=== PATIENT | male | born 1940 | race Caucasian/White ===

== ENCOUNTER → 2017-04-02 | Outpatient (CLI) | payer OTHER ==
--- NOTE | 2017-04-02 10:02 | US ---
EXAMINATION TYPE: US liver DATE OF EXAM: 04/02/2017 COMPARISON: NONE CLINICAL HISTORY: R79.89 ABN FINDINGS OF BLOOD CHEMISTRY. EXAM MEASUREMENTS: Liver Length: 16.3 cm Gallbladder Wall: 0.3 cm CBD: 0.6 cm Right Kidney: 10.5 x 5.2 x 4.6 cm Pancreas: hyperechoic; SMA is prominent on slender patient Liver: multiple heterogeneous masses in right and left lobes, and possibly in caudate lobe Gallbladder: abnormally thickened wall Evidence for sonographic Morrison's sign: c/o epigastric pain with probe pressure CBD: wnl Right Kidney: wnl Upper Aorta: abnormally dilated with hypoechoic area at right aorta periphery and color flow is paten t within internal lumen. IMPRESSION: 1. Multiple masses within the liver suspected recommend CT scan. 2. Gallbladder wall is thickened measuring 3 mm with no evidence of gallstones. 3. Dilation of the proximal abdominal aorta suspected eccentric atherosclerotic changes also could be assessed with CT scan. A Red message has been communicated to Bebeto Dawson DO via the [employer] Critical Result system on 04/02/2017 9:56 AM, Message ID [id number].
== END | disposition home or self-care (01) ==
LOC: RADUSWWP 09:08
PROVIDERS: ATTEND Family Medicine
DX: R16.0 Hepatomegaly, not elsewhere classified (principal); R07.89 Other chest pain
CPT/HCPCS: 76705

== ENCOUNTER → 2017-04-17 | Outpatient (CLI) | payer OTHER ==
[2017-04-17 14:57] LABS: Blood Urea Nitrogen 13 mg/dL (9-20); Non-African American GFR(MDRD) >60 (>60 ml/min/1.73 sqM)
--- NOTE | 2017-04-17 16:58 | CT ---
EXAMINATION TYPE: CT abdomen pelvis wo/w con DATE OF EXAM: 04/17/2017 COMPARISON: None at this location INDICATION: Carcinoid tumors of the liver. Patient complains of changes in bowel habits. DLP: 2281.00 mGycm, Automated exposure control for dose reduction was used. CONTRAST: 100 mL of Omnipaque 300. Study performed with Oral Contrast TECHNIQUE: Axial images were obtained from above the diaphragm to the pubic rami in the axial plane a t 5 mm thick sections. Reconstructed images are reviewed on the computer in the coronal plane. FINDINGS: Limited CT sections are obtained the lung bases. The lung bases are clear. CT ABDOMEN: Liver: Large hypodensities are scattered throughout the liver. 2 adjacent or one large right lobe mid liver lesion measures 8.0 x 13.2 cm. Spleen: Calcified granuloma is within the spleen. Pancreas: Some slightly prominent tail of pancreas hypodensity is present. Underlying mass is not exc luded. This is a noncontrast study causing some limitation on the evaluation. Follow-up however is re commended. Adrenal glands: Normal Gallbladder: Normal Kidneys: No masses are evident. No hydronephrosis is present. Extrarenal pelves are present. No cysts are present. Aorta: Vascular calcification is within the aorta. Inferior vena cava: Normal CT PELVIS: Loops of bowel within the abdomen and pelvis are normal. There are loops of bowel which are incom pletely distended or lack oral contrast limiting their evaluation. Patient's primary tumor is not kaylynn ntified Appendix: Not identified. No suspicious tubular structures around the right lower quadrant. Urinary bladder: This appears markedly distended. Genitourinary structures: Prostate contains calcification. Osseous structures: No suspicious lytic or sclerotic lesions. Scoliosis and degenerative changes are through the lumbar spine. IMPRESSIONS: 1. Multiple large hypodensities within the liver can be compatible with the patient's reported carci noid tumor. 2. Distended urinary bladder. Correlate for urinary retention.
== END | disposition home or self-care (01) ==
LOC: RADCTMAIN 14:20
PROVIDERS: ATTEND Family Medicine
DX: C7B.02 Secondary carcinoid tumors of liver (principal); N32.89 Other specified disorders of bladder; R93.8 Abnormal findings on diagnostic imaging of other specified body structures
CPT/HCPCS: 82565; 84520; 74178; 36415; Q9967

== ENCOUNTER 2017-05-11 09:39 | Day surgery (SDC) | payer MEDICARE, BC ==
[~2017-05-11 09:39] MED LIST: ALPRAZolam 0.5 MG TAB PO ONE; HYDROmorphone 1 MG/ML 1 ML SYRINGE IVP PRN
[2017-05-11 10:11] VITALS: TEMP 98.3
[2017-05-11] MEDS ORDERED: ALPRAZolam 0.25 MG TAB PO STA (10:16)
[2017-05-11 10:23] LABS: Basophils # (A) 0.1 k/uL (0-0.2); Basophils % (A) 2 %; CH 32.3; CHCM 33.7; Eosinophils % (A) 0 %; HCT 45.5 % (39.0-53.0); HDW 2.57; HGB 15.1 gm/dL (13.0-17.5); Luc # (Auto) 0.13; Luc % (Auto) 2; Lymphocytes # (A) 0.7 k/uL (1.0-4.8); Lymphocytes % (A) 10 %; MCH 31.9 pg (25.0-35.0); MCHC 33.1 g/dL (31.0-37.0); MCV 96.3 fL (80.0-100.0); Mean Platelet Volume 7.8; Monocytes # (A) 0.4 k/uL (0-1.0); Monocytes % (A) 6 %; Neutrophils # (A) 5.6 k/uL (1.3-7.7); Neutrophils % (A) 80 %; RBC 4.73 m/uL (4.30-5.90); RDW 13.5 % (11.5-15.5)
[2017-05-11 10:31] LABS: ALT 47 U/L (21-72); AST 43 U/L (17-59); Alkaline Phosphatase 423 U/L (38-126); Anion Gap 9 mmol/L; Blood Urea Nitrogen 16 mg/dL (9-20); Calcium 9.8 mg/dL (8.4-10.2); Carbon Dioxide 29 mmol/L (22-30); Chloride 100 mmol/L (98-107); Glucose 208 mg/dL (74-99); Non-African American GFR(MDRD) >60 (>60 ml/min/1.73 sqM); Potassium 4.3 mmol/L (3.5-5.1); Sodium 138 mmol/L (137-145); Total Protein 7.1 g/dL (6.3-8.2)
[2017-05-11 10:32] LABS: INR 1.1 (<1.2); Prothrombin Time 11.1 sec (9.0-12.0)
[2017-05-11 10:40] LABS: Glucose,Whole Blood 159 mg/dL (75-99)
[2017-05-11 11:52] LABS: Glucose,Whole Blood 126 mg/dL (75-99)
--- NOTE | 2017-05-11 12:00 | CT ---
EXAMINATION TYPE: CT guided aspiration DATE OF EXAM: 05/11/2017 COMPARISON: NONE HISTORY: Liver masses CT DLP: 1912mGycm PROCEDURE: The risks, applications, benefits and alternatives, were discussed with the patient and questions wer e answered. Informed consent was obtained. The patient was placed supine on the fluoroscopic table, prepped and draped in the usual sterile fashion. A 25-gauge system was utilized with direct passage of the needle into the left lobe liver lesion und er CT guidance. Samples were obtained with fine needle aspiration. Pathology confirmed adequate crystal ple. The patient was stable throughout procedure and remained stable upon discharge from radiology. All e lements of maximal barrier and sterile technique were utilized. IMPRESSION: 1. Successful left lobe liver mass fine needle aspiration under CT guidance.
[2017-05-11 14:49] VITALS: BP 128/82; PULSE 68; RESP 20
== END 2017-05-11 15:20 | disposition home or self-care (01) ==
LOC: RADPROMAIN 09:39
PROVIDERS: ATTEND Internal Medicine Gastroenterology
DX: C78.7 Secondary malignant neoplasm of liver and intrahepatic bile duct (principal)
CPT/HCPCS: 88305; 88173; 80053; 82378; 85025; 85610; 88342; 88341; 82105; 86301; 96374; 77012; 10022; J1170; 81275; 81276

== ENCOUNTER → 2017-05-19 | Outpatient (CLI) | payer MEDICARE, BC ==
--- NOTE | 2017-05-20 09:41 | PE ---
Nuclear medicine PET/CT HISTORY: Colon carcinoma Patient received 12.9 mCi F-18 FDG intravenously and delayed scanning performed from the skull base t o the mid thighs. Localization and attenuation correction CT scan was performed. Exam is correlated t o prior CT abdomen pelvis 04/17/2017 Neck and chest: There is no suspicious hypermetabolic uptake. No evident adenopathy. Ascending aorta is dilated at 4 cm. There are coronary artery calcifications. Abdomen pelvis: Large confluent areas of abnormal low attenuation are present within the liver with c orresponding hypermetabolic uptake. There are some associated dilated intrahepatic biliary ducts towa rds the dome of the diaphragm. Calcifications are again noted within the pancreas. No evident retrope ritoneal adenopathy. Cystic pancreatic tail mass is present. The urinary bladder is markedly distended. Calcifications present within an enlarged prostate. 2 foci of hypermetabolic uptake within the left hemipelvis posteriorly may represent abnormal nodes althoug h these are not clearly enlarged by CT scan criteria. Abnormal increased attenuation present within t he fat surrounding the rectum, question some abnormal thickening of the rectal mucosa, correlate for rectal mass, there is associated abnormal hypermetabolic uptake present. Osseous structures show degenerative disc changes within the visualized spine, there is a scoliosis. IMPRESSION: Findings suggest metastatic disease within the liver due to possible rectal carcinoma. Pr obable abnormal nodes within the pelvis as described. Urinary retention. Abnormal pancreas as describ ed. Additional findings above.
== END ==
LOC: RADPETMAIN 09:17
PROVIDERS: ATTEND Internal Medicine Hematology & Oncology
DX: C18.9 Malignant neoplasm of colon, unspecified (principal)
CPT/HCPCS: 78815; A9552

== ENCOUNTER 2017-07-19 09:22 | Emergency (ER) | payer MEDICARE, BC ==
[2017-07-19 10:05] VITALS: BP 141/84; PULSE 76; RESP 16; TEMP 97.7
--- NOTE | 2017-07-19 10:16 | ED ---
General Adult HPI - General Chief complaint: Recheck/Abnormal Lab/Rx Stated complaint: Catheder leak Time Seen by Provider: 07/19/17 10:08 Source: patient, RN notes reviewed Mode of arrival: ambulatory Limitations: no limitations - History of Present Illness Initial comments: Patient 76-year-old male who presents emergency room today with chief complaint of a León catheter bag that is leaking. Patient states that he was advised by his urologist to come here to the emergency room to have only a new León catheter bag placed. Patient states seems to be leaking from the bottom of the bag causing this. Patient denies any complaints or symptoms. States he is scheduled see his urologist next week to have the León catheter itself removed. Patient denies any other complaints or symptoms. Patient denies any recent fever, chills, shortness of breath, chest pain, back pain, abdominal pain , nausea or vomiting, numbness or tingling, dysuria or hematuria, constipation or diarrhea, headaches or visual changes, or any other complaints. - Related Data Home Medications Medication Instructions Recorded Confirmed Non-Formulary Drug [Non Formulary 1 each PO TID-W/MEALS 05/08/17 05/11/17 Drug] Allergies Allergy/AdvReac Type Severity Reaction Status Date / Time starch AdvReac Swelling Verified 05/11/17 10:15 Review of Systems ROS Statement: Those systems with pertinent positive or pertinent negative responses have been documented in the HPI. ROS Other: All systems not noted in ROS Statement are negative. Past Medical History Past Medical History: Diabetes Mellitus, Liver Disease Additional Past Medical History / Comment(s): bladder problems History of Any Multi-Drug Resistant Organisms: None Reported Past Surgical History: Hernia Repair Additional Past Surgical History / Comment(s): bone replaced in finger, umbilical hernia surgery, multiple site fatty tumors removed. Past Anesthesia/Blood Transfusion Reactions: No Reported Reaction Past Psychological History: Anxiety, Bipolar, Depression Smoking Status: Former smoker Past Alcohol Use History: Rare Past Drug Use History: None Reported - Past Family History Mother Family Medical History: Congestive Heart Failure (CHF) General Exam - General Exam Comments Initial Comments: General: The patient is awake and alert, in no distress, and does not appear acutely ill. Eye: Pupils are equal, round and reactive to light, extra-ocular movements are intact. No nystagmus. There is normal conjunctiva bilaterally. No signs of icterus. Ears, nose, mouth and throat: There are moist mucous membranes and no oral lesions. Neck: The neck is supple, there is no tenderness or JVD. Musculoskeletal: Normal ROM, no tenderness. Strength 5/5. Sensation intact. Pulses equal bilaterally 2+. Neurological: A&O x 3. CN II-XII intact, There are no obvious motor or sensory deficits. Coordination appears grossly intact. Speech is normal. Skin: Skin is warm and dry and no rashes or lesions are noted. Psychiatric: Cooperative, appropriate mood & affect, normal judgment. Limitations: no limitations Course Vital Signs 07/19/17 10:00 Temperature 97.7 F Pulse Rate 76 Respiratory 16 Rate Blood Pressure 141/84 O2 Sat by Pulse 98 Oximetry Medical Decision Making - Medical Decision Making Patient presents to the emergency room to have León catheter bag placed. States the León catheter itself was not be removed. He states he was instructed by his urologist Dr. Diaz. Disposition Clinical Impression: León catheter problem Disposition: HOME SELF-CARE Condition: Good Instructions: León Catheter Placement and Care (ED) Additional Instructions: Please follow-up with urologist next week. Please return to emergency room if the symptoms increase or worsen or for any other concerns. Referrals: Bebeto Dawson DO [Primary Care Provider] - 1-2 days Time of Disposition: 10:16
== END 2017-07-19 10:24 | disposition home or self-care (01) ==
LOC: EC 09:22
DX: T83.031A Leakage of indwelling urethral catheter, initial encounter (principal); Z87.891 Personal history of nicotine dependence; Z79.899 Other long term (current) drug therapy; Z91.018 Allergy to other foods
CPT/HCPCS: 99283

== ENCOUNTER 2017-09-21 04:15 | Inpatient (IN) | payer MEDICARE, BC ==
--- NOTE | 2017-09-21 04:44 | ED ---
General Adult HPI - General Chief complaint: Fall Stated complaint: weakness Time Seen by Provider: 09/21/17 04:18 Source: patient, EMS, RN notes reviewed, old records reviewed Mode of arrival: EMS Limitations: no limitations - History of Present Illness Initial comments: 77-year-old male presenting status post fall. Patient has stage IV colon cancer. Patient states he felt weak causing him to fall. He did hit his head. No loss of consciousness. Patient is not on any blood thinners. He has no pain complaints the time my evaluation. No chest pain or shortness of breath. No abdominal pain. No nausea or vomiting. Patient denies any focal weakness. Denies any extremity pain. - Related Data Home Medications Medication Instructions Recorded Confirmed Non-Formulary Drug [Non Formulary 1 each PO TID-W/MEALS 05/08/17 05/11/17 Drug] Previous Rx's Medication Instructions Recorded Ciprofloxacin HCl [Cipro] 500 mg PO Q12HR #14 tablet 08/04/17 Allergies Allergy/AdvReac Type Severity Reaction Status Date / Time starch AdvReac Unknown Verified 09/21/17 04:24 Review of Systems ROS Statement: Those systems with pertinent positive or pertinent negative responses have been documented in the HPI. ROS Other: All systems not noted in ROS Statement are negative. Past Medical History Past Medical History: Diabetes Mellitus, Liver Disease Additional Past Medical History / Comment(s): bladder problems , rectal cancer with mets to the liver dx 05/13 History of Any Multi-Drug Resistant Organisms: None Reported Past Surgical History: Hernia Repair Additional Past Surgical History / Comment(s): bone replaced in finger, umbilical hernia surgery, multiple site fatty tumors removed. Past Anesthesia/Blood Transfusion Reactions: No Reported Reaction Past Psychological History: Anxiety, Bipolar, Depression, PTSD Smoking Status: Former smoker Past Alcohol Use History: None Reported Past Drug Use History: None Reported - Past Family History Mother Family Medical History: Congestive Heart Failure (CHF) General Exam Limitations: no limitations General appearance: alert, in no apparent distress Head exam: Present: normocephalic, other (Hematoma and abrasion to the right frontal scalp) Eye exam: Present: normal appearance, PERRL. Absent: EOMI ENT exam: Present: normal exam Neck exam: Present: normal inspection. Absent: tenderness, meningismus Respiratory exam: Present: normal lung sounds bilaterally. Absent: respiratory distress Cardiovascular Exam: Present: regular rate, normal rhythm GI/Abdominal exam: Present: soft. Absent: distended, tenderness Extremities exam: Present: normal inspection, full ROM, normal capillary refill. Absent: tenderness, pedal edema Neurological exam: Present: alert, oriented X3, CN II-XII intact. Absent: motor sensory deficit Psychiatric exam: Present: normal affect, normal mood Skin exam: Present: warm, dry, intact. Absent: cyanosis, diaphoretic Course Vital Signs 09/21/17 09/21/17 09/21/17 04:16 05:50 06:29 Temperature 97.7 F Pulse Rate 98 77 80 Respiratory 16 16 16 Rate Blood Pressure 127/79 119/77 126/68 O2 Sat by Pulse 97 96 96 Oximetry EKG Findings - EKG Comments: EKG Findings:: EKG shows sinus rhythm with occasional PVC left axis deviation, pulmonary disease pattern, prolonged QT, ventricular rate 86, AR 174, QRS duration 108, QTC 524. Medical Decision Making - Medical Decision Making 77-year-old male with history of stage IV colon cancer presents with fatigue and fall. Patient did hit his head. Head CT is negative for acute cranial hemorrhage, CT cervical spine negative for fracture or subluxation, x-ray of the pelvis is negative for any acute bony of her memory, chest x-ray negative for focal pneumonia or acute process. Laboratory studies reveal white blood cell count 13.0 which is mildly elevated, hemoglobin 11.4 which represents a 4 g reduction from several months ago. Sodium is low at 1:30, creatinine normal lactic acid 3.1 consistent with dehydration. Patient has significant liver enzymes consistent with metastatic disease, total bili is elevated 2.9, AST and ALT both mildly elevated, alkaline phosphatase elevated at 1334. Urinalysis is pending. Patient will be admitted for rehydration and symptomatic management. - Lab Data Result diagrams: 09/21/17 05:00 09/21/17 05:00 Lab Results 09/21/17 09/21/17 09/21/17 Range/Units 05:00 05:00 05:00 WBC 13.0 H (3.8-10.6) k/uL RBC 3.83 L (4.30-5.90) m/uL Hgb 11.4 L (13.0-17.5) gm/dL Hct 35.9 L (39.0-53.0) % MCV 93.7 (80.0-100.0) fL MCH 29.9 (25.0-35.0) pg MCHC 31.9 (31.0-37.0) g/dL RDW 15.0 (11.5-15.5) % Plt Count 401 (150-450) k/uL Neutrophils % 92 % Lymphocytes % 3 % Monocytes % 4 % Eosinophils % 0 % Basophils % 0 % Neutrophils # 11.9 H (1.3-7.7) k/uL Lymphocytes # 0.4 L (1.0-4.8) k/uL Monocytes # 0.5 (0-1.0) k/uL Eosinophils # 0.0 (0-0.7) k/uL Basophils # 0.0 (0-0.2) k/uL PT (9.0-12.0) sec INR (<1.2) APTT (22.0-30.0) sec Sodium 130 L (137-145) mmol/L Potassium 4.3 (3.5-5.1) mmol/L Chloride 90 L (98-107) mmol/L Carbon Dioxide 29 (22-30) mmol/L Anion Gap 11 mmol/L BUN 18 (9-20) mg/dL Creatinine 0.60 L (0.66-1.25) mg/dL Est GFR (MDRD) Af Amer >60 (>60 ml/min/1.73 sqM) Est GFR (MDRD) Non-Af >60 (>60 ml/min/1.73 sqM) Glucose 168 H (74-99) mg/dL Plasma Lactic Acid Gopi (0.7-2.0) mmol/L Calcium 8.9 (8.4-10.2) mg/dL Magnesium 2.5 H (1.6-2.3) mg/dL Total Bilirubin 2.9 H (0.2-1.3) mg/dL AST 171 H (17-59) U/L ALT 120 H (21-72) U/L Alkaline Phosphatase 1334 H (38-126) U/L Total Creatine Kinase 61 (55-170) U/L CK-MB (CK-2) 0.5 (0.0-2.4) ng/mL CK-MB (CK-2) Rel Index 0.8 Troponin I <0.012 (0.000-0.034) ng/mL Total Protein 6.0 L (6.3-8.2) g/dL Albumin 3.0 L (3.5-5.0) g/dL 09/21/17 09/21/17 Range/Units 05:00 05:00 WBC (3.8-10.6) k/uL RBC (4.30-5.90) m/uL Hgb (13.0-17.5) gm/dL Hct (39.0-53.0) % MCV (80.0-100.0) fL MCH (25.0-35.0) pg MCHC (31.0-37.0) g/dL RDW (11.5-15.5) % Plt Count (150-450) k/uL Neutrophils % % Lymphocytes % % Monocytes % % Eosinophils % % Basophils % % Neutrophils # (1.3-7.7) k/uL Lymphocytes # (1.0-4.8) k/uL Monocytes # (0-1.0) k/uL Eosinophils # (0-0.7) k/uL Basophils # (0-0.2) k/uL PT 11.1 (9.0-12.0) sec INR 1.2 H (<1.2) APTT 22.5 (22.0-30.0) sec Sodium (137-145) mmol/L Potassium (3.5-5.1) mmol/L Chloride (98-107) mmol/L Carbon Dioxide (22-30) mmol/L Anion Gap mmol/L BUN (9-20) mg/dL Creatinine (0.66-1.25) mg/dL Est GFR (MDRD) Af Amer (>60 ml/min/1.73 sqM) Est GFR (MDRD) Non-Af (>60 ml/min/1.73 sqM) Glucose (74-99) mg/dL Plasma Lactic Acid Gopi 3.1 H* (0.7-2.0) mmol/L Calcium (8.4-10.2) mg/dL Magnesium (1.6-2.3) mg/dL Total Bilirubin (0.2-1.3) mg/dL AST (17-59) U/L ALT (21-72) U/L Alkaline Phosphatase (38-126) U/L Total Creatine Kinase (55-170) U/L CK-MB (CK-2) (0.0-2.4) ng/mL CK-MB (CK-2) Rel Index Troponin I (0.000-0.034) ng/mL Total Protein (6.3-8.2) g/dL Albumin (3.5-5.0) g/dL Disposition Clinical Impression: Fall, Lactic acidosis, Hx of colon cancer, stage IV, Dehydration Disposition: [facility] Condition: Stable Referrals: Earl Rodgers DO [Primary Care Provider] - 1-2 days Decision to Admit Reason: Admit from EC Decision Date: 09/21/17 Decision Time: 06:46
--- NOTE | 2017-09-21 05:19 | CT ---
EXAM: CT Head Without Intravenous Contrast CLINICAL HISTORY: Pain TECHNIQUE: Axial computed tomography images of the head/brain without intravenous contrast. CTDI is 57.40 mGy and DLP is 1064.30 mGy-cm. This CT exam was performed using one or more of the following dose reduction techniques: automated exposure control, adjustment of the mA and/or kV according to patient size, and/or use of iterative reconstruction technique. COMPARISON: No relevant prior studies available. FINDINGS: Brain: No evidence of acute infarct, hemorrhage, mass or edema. Chronic small vessel ischemic disease and senescent changes. Ventricles: Unremarkable. No ventriculomegaly. Bones/joints: Unremarkable. No acute fracture. Soft tissues: Unremarkable. Sinuses: Unremarkable as visualized. No acute sinusitis. Mastoid air cells: Unremarkable as visualized. No mastoid effusion. IMPRESSION: No acute findings. EXAM: CT Cervical Spine Without Intravenous Contrast CLINICAL HISTORY: Pain TECHNIQUE: Axial computed tomography images of the cervical spine without intravenous contrast. CTDI is 14.10 mGy and DLP is 264.10 mGy-cm. This CT exam was performed using one or more of the following dose reduction techniques: automated exposure control, adjustment of the mA and/or kV according to patient size, and/or use of iterative reconstruction technique. COMPARISON: No relevant prior studies available. FINDINGS: Vertebrae: No acute fracture or traumatic malalignment. Discs/spinal canal/neural foramina: Multilevel degenerative changes. No spinal canal stenosis. Soft tissues: Unremarkable. Lung apices: Unremarkable as visualized. IMPRESSION: No acute fracture or traumatic malalignment.
--- NOTE | 2017-09-21 05:20 | XR ---
EXAM: XR Pelvis, 1 or 2 Views CLINICAL HISTORY: Pain TECHNIQUE: Frontal view of the pelvis. COMPARISON: No relevant prior studies available. FINDINGS: Bones/joints: Degenerative changes. No acute fracture or traumatic alignment. Soft tissues: Unremarkable. IMPRESSION: No acute findings.
--- NOTE | 2017-09-21 05:25 | XR ---
EXAM: XR Chest, 2 Views CLINICAL HISTORY: Reason: fall TECHNIQUE: Frontal and lateral views of the chest. COMPARISON: No relevant prior studies available. FINDINGS: Lungs: Low lung volumes. No parenchymal abnormality. Pleural space: Unremarkable. No pneumothorax. Heart: Unremarkable. No cardiomegaly. Mediastinum: Unremarkable. Bones/joints: Degenerative changes of the osseous structures. No acute fracture. Vasculature: Tortuosity of the thoracic aorta. IMPRESSION: No acute findings.
[2017-09-21 05:28] LABS: Basophils % (A) 0 %; Eosinophils % (A) 0 %; HCT 35.9 % (39.0-53.0); HGB 11.4 gm/dL (13.0-17.5); Lymphocytes # (A) 0.4 k/uL (1.0-4.8); Lymphocytes % (A) 3 %; MCH 29.9 pg (25.0-35.0); MCHC 31.9 g/dL (31.0-37.0); MCV 93.7 fL (80.0-100.0); Monocytes # (A) 0.5 k/uL (0-1.0); Monocytes % (A) 4 %; Neutrophils # (A) 11.9 k/uL (1.3-7.7); Neutrophils % (A) 92 %; Platelet Count 401 k/uL (150-450); RBC 3.83 m/uL (4.30-5.90)
[2017-09-21 05:36] LABS: INR 1.2 (<1.2); Partial Thromboplastin Time 22.5 sec (22.0-30.0); Prothrombin Time 11.1 sec (9.0-12.0)
[2017-09-21 05:41] LABS: ALT 120 U/L (21-72); AST 171 U/L (17-59); Alkaline Phosphatase 1334 U/L (38-126); Anion Gap 11 mmol/L; Blood Urea Nitrogen 18 mg/dL (9-20); Calcium 8.9 mg/dL (8.4-10.2); Carbon Dioxide 29 mmol/L (22-30); Chloride 90 mmol/L (98-107); Glucose 168 mg/dL (74-99); Magnesium 2.5 mg/dL (1.6-2.3); Potassium 4.3 mmol/L (3.5-5.1); Sodium 130 mmol/L (137-145); Total Bilirubin 2.9 mg/dL (0.2-1.3)
[2017-09-21 06:00] LABS: Creatine Kinase 61 U/L (55-170)
[2017-09-21] MEDS ORDERED: SODIUM CHLORIDE 0.9% 1,000 ML IV ONE (06:01)
[2017-09-21 06:13] LABS: Creatine Kinase MB 0.5 ng/mL (0.0-2.4); Troponin I <0.012 ng/mL (0.000-0.034)
[2017-09-21] MEDS ORDERED: HYDROmorphone 0.5 MG/0.5 ML SYRINGE IVP PRN (06:46)
[2017-09-21] MEDS ORDERED: IBUPROFEN 400 MG TAB PO PRN (06:46)
[2017-09-21] MEDS ORDERED: NALOXONE 0.4 MG/ML 1 ML VIAL IV PRN (06:46)
[2017-09-21] MEDS ORDERED: ONDANSETRON 4 MG/2 ML VIAL IVP PRN (06:46)
[2017-09-21 06:53] LABS: Amorphous Sediment,Urine Occasional /hpf; Appearance,Urine Cloudy (Clear); Bacteria,Urine Many /hpf; Bilirubin,Urine Negative (Negative); Blood,Urine Negative (Negative); Color,Urine Yellow; Glucose,Urine (UA) Negative (Negative); Ketones,Urine Negative (Negative); Leukocyte Esterase,Urine Large (Negative); Mucus,Urine Rare /hpf; Nitrite,Urine Negative (Negative); PH, Urine 7.5 (5.0-8.0); Protein,Urine Trace (Negative); Specific Gravity,Urine 1.008 (1.001-1.035); Squamous Epithelial Cell,Urine 1 /hpf (0-4); WBC,Urine >182 /hpf (0-5)
[2017-09-21] MEDS ORDERED: cefTRIAXone IN SWFI 1,000 MG/10 ML SYRINGE IVP STA (07:14)
[2017-09-21 08:58] VITALS: BMI 18.6
[2017-09-21] MEDS: SODIUM CHLORIDE 0.9% 1,000 ML IV SCH ×2 (09:01→20:34)
[2017-09-21 11:15] LABS: Glucose,Whole Blood 189 mg/dL (75-99)
[2017-09-21] MEDS: FERROUS SULFATE 325 MG TAB PO SCH (11:33)
--- NOTE | 2017-09-21 11:46 | HP ---
HISTORY AND PHYSICAL ADMISSION DATE: 09/21/2017 This is a pleasant debilitated white male who apparently comes to the office. I think I have met him previously one time. He presents with stage IV colon cancer where he has liver metastasis. I am not too sure how much he has been following up with the Oncology, Dr. Gomes. He is on a host of supplements but no prescription medications. Patient states that he is feeling weak, inability to walk, causing him to fall. He did hit his head in his front part. He denied any loss of consciousness. He does not complain of any complaints and he says that his cancer is in remission; however, his significant other at bedside states that they have told him several times that he has stage IV metastatic cancer and it is not in remission. Medications as mentioned are multiple supplements including iron, Sari palmetto and a host of others. He has been previously on Cipro antibiotic. He has no known drug allergies. REVIEW OF SYSTEMS: He denies any cough, congestion. Denies any shortness of breath. He admits to being weak. He admits to having weight loss, muscle atrophy, weakness, dizziness, lightheadedness, near syncope. Denies any hematuria. All review of systems is otherwise negative. PAST MEDICAL HISTORY: Significant for liver disease and diabetes. He was diagnosed in April of 2017 with rectal cancer with metastasis to the liver. PAST SURGICAL HISTORY: Significant for umbilical hernia and a finger. PSYCHOSOCIAL: Positive for anxiety, bipolar depression and posttraumatic stress disorder. SOCIAL: Denies any recent alcohol, drugs. Former smoker. FAMILY HISTORY: His mother had congestive heart failure. PHYSICAL EXAM: The patient is alert. He has a small laceration to his left frontal scalp. He is orientated x3 in no acute distress. HEAD: Normocephalic with a hematoma and abrasion mentioned above. EYES: Pupils equal, round, and reactive to light. Sclera looks nonicteric. NECK: Supple with no JVD. HEART: Regular rate and rhythm. LUNGS: Diminished breath sounds bilateral. Extremities with some mild pedal edema and cachectic-appearing in upper extremities, chest and lower extremities. NEUROLOGICAL: Cranial nerves 2 through 12 are grossly intact. PSYCHIATRIC: Appears to be a gruff in appearance and short with conversation. Mood is somewhat depressed and agitated. Skin is warm and dry. Mucous membranes are dry. IMPRESSION: 1. Stage IV colon cancer with metastasis to the liver. 2. Acute dehydration with hypotension and near-syncope with fall. 3. Laceration hematoma to his left frontal scalp. 4. Lactic acidosis. 5. Elevated alkaline phosphatase at 1300+. 6. Hyperbilirubinemia. 7. Anemia of chronic disease. PLAN: Admit patient, full Oncology Services to consult regarding this patient's metastatic disease. It looks like his condition could be advancing and it might be time to discuss hospice with this patient since it does not seem like he is following any type of care or treatment protocol. Will continue to monitor blood sugars as patient is refusing to take any insulin or any other medication at this time. Dr. Snyder's group to follow patient as of 4 o'clock today. MMPIETROL / IJN: [id number] /
[2017-09-21 16:44] LABS: Glucose,Whole Blood 170 mg/dL (75-99)
[2017-09-21 17:07] LABS: Hemoglobin A1C 5.1 % (4.0-6.0)
[2017-09-21] MEDS ORDERED: RX INFO: IV CONTRAST WAS GIVEN 1 EACH MISC MISCELLANE PRN (19:13)
--- NOTE | 2017-09-21 19:13 | P.CONS ---
History of Present Illness - Reason for Consult Consult date: 09/21/17 - History of Present Illness the patient is a 77-year-old white male who presented to his PCP,Dr Dawson in 04/12 with progressive RUQ abdominal pain > U/S of liver revealed large multiple liver lesions confirmed by CT Scan study. He was seen by Dr Jeni Crook, appearently a rectal lesion could be palpated. He was seen by Dr Marie before, who recommended Colonoscopy but the patient declined. He continues to decline Colonoscopy advised by Dr Jeni Crook. CT-Guided Liver biopsy on 05/11/17 revealed metastatic Adenocarcinoma C/W Colorectal primary, CEA was 2840 and CA19-9 was [id number]. He was referred to Dr. Gomes, and seen for initial consult in 05/13.The patient was C/O abdominal pain and "Gas" over last 6 months, he has anorexia and 30 Lbs weight loss in last 6 months, as well as bright red blood per rectum X 1 year. Son(52) was diagnosed with metastatic Colon Cancer in 2014. PET Scan n 05/13: Extensive liver mets. The patient was last seen in the office on 05/25/17. At that time systemic chemotherapy with FOLFOX, along with Avastin was recommended. Port placement was also recommended. It appears that the patient decided against chemotherapy and Avastin. The family requested serial blood draws. The patient has been taking various alternative therapies. He came into the hospital because of progressive weakness, as well as fall. He was felt to be dehydrated, with somewhat elevated lactic acid. Consult was placed for further evaluation and recommendations. Review of Systems Constitutional: Reports poor appetite, Reports weakness, Reports weight loss Eyes: denies blurred vision, denies pain Ears: deny: decreased hearing, ear discharge, earache, tinnitus Ears, nose, mouth and throat: Denies headache, Denies sore throat Cardiovascular: Reports decreased exercise tolerance Respiratory: Denies cough Gastrointestinal: Reports constipation, Reports excessive gas Genitourinary: Reports as per HPI Musculoskeletal: Reports muscle weakness Integumentary: Denies pruritus, Denies rash Neurological: Reports as per HPI (Weakness and fall), Reports weakness Psychiatric: Denies anxiety, Denies depression Endocrine: Reports fatigue, Reports weight change Hematologic/Lymphatic: Reports as per HPI Past Medical History Past Medical History: Diabetes Mellitus, Liver Disease Additional Past Medical History / Comment(s): bladder problems , rectal cancer with mets to the liver dx 05/13 History of Any Multi-Drug Resistant Organisms: None Reported Past Surgical History: Hernia Repair Additional Past Surgical History / Comment(s): bone replaced in finger, umbilical hernia surgery, multiple site fatty tumors removed. Past Anesthesia/Blood Transfusion Reactions: No Reported Reaction Past Psychological History: Anxiety, Bipolar, Depression, PTSD Smoking Status: Former smoker Past Alcohol Use History: None Reported Past Drug Use History: None Reported - Past Family History Mother Family Medical History: Congestive Heart Failure (CHF) Medications and Allergies Home Medications Medication Instructions Recorded Confirmed Type A-C Carbamide 1 tab PO HS 09/21/17 09/21/17 History Activated Charcoal 1 tab PO DAILY 09/21/17 09/21/17 History Bladder Control 1 tab PO DAILY 09/21/17 09/21/17 History Blood Glucose Success 1 tab PO TID 09/21/17 09/21/17 History Ferrous Sulfate [Feosol] 325 mg PO DAILY 09/21/17 09/21/17 History L.acidoph,Paracasei, B.lactis 1 cap PO DAILY 09/21/17 09/21/17 History [Probiotic] Saw Porter 160 mg PO DAILY 09/21/17 09/21/17 History Vitamin B Complex 1 cap PO DAILY 09/21/17 09/21/17 History Allergies Allergy/AdvReac Type Severity Reaction Status Date / Time starch AdvReac Unknown Verified 09/21/17 07:12 Physical Exam Vitals: Vital Signs Temp Pulse Pulse Resp BP BP Pulse Ox 09/21/17 14:03 98.2 F 84 16 111/71 98 09/21/17 08:21 98.0 F 75 16 132/82 96 09/21/17 08:10 96 09/21/17 06:29 80 16 126/68 96 09/21/17 05:50 77 16 119/77 96 09/21/17 04:16 97.7 F 98 16 127/79 97 Intake and Output 09/21/17 09/21/17 09/21/17 06:59 14:59 22:59 Intake Total 840 Output Total 1999 Balance -1160 Intake: Intake, IV Titration 600 Amount Sodium Chloride 0.9% 1, 600 000 ml @ 75 mls/hr IV . [id number] [facility] Rx#:[id number] Oral 240 Output: Urine 1999 Uretheral (Le[place]) 1999 Other: Voiding Method Incontinent # Voids 1 # Bowel Movements 1 Weight 58.967 kg 58.967 kg Patient Weight 09/22/17 06:59 Weight 58.967 kg - Constitutional General appearance: no acute distress - EENT Eyes: EOMI, PERRLA ENT: hearing grossly normal, normal oropharynx - Neck Neck: no lymphadenopathy Thyroid: bilateral: normal size - Respiratory Respiratory: bilateral: CTA - Cardiovascular Rhythm: regular Heart sounds: normal: S1, S2 - Gastrointestinal General gastrointestinal: hepatomegaly (Your markedly enlarged, extending into the left upper quadrant. Enlarged about 3-4 fingers below costal margin. Irregular surface and margin) - Integumentary Integumentary: normal - Neurologic Neurologic: CNII-XII intact - Musculoskeletal Musculoskeletal: generalized weakness, strength equal bilaterally - Psychiatric Psychiatric: A&O x's 3, appropriate affect Results CBC & Chem 7: 09/21/17 05:00 09/21/17 05:00 Labs: Abnormal Lab Results - Last 24 Hours (Table) 09/21/17 09/21/17 09/21/17 Range/Units 05:00 05:00 05:00 WBC 13.0 H (3.8-10.6) k/uL RBC 3.83 L (4.30-5.90) m/uL Hgb 11.4 L (13.0-17.5) gm/dL Hct 35.9 L (39.0-53.0) % Neutrophils # 11.9 H (1.3-7.7) k/uL Lymphocytes # 0.4 L (1.0-4.8) k/uL INR (<1.2) Sodium 130 L (137-145) mmol/L Chloride 90 L (98-107) mmol/L Creatinine 0.60 L (0.66-1.25) mg/dL Glucose 168 H (74-99) mg/dL POC Glucose (mg/dL) (75-99) mg/dL Plasma Lactic Acid Gopi 3.1 H* (0.7-2.0) mmol/L Magnesium 2.5 H (1.6-2.3) mg/dL Total Bilirubin 2.9 H (0.2-1.3) mg/dL AST 171 H (17-59) U/L ALT 120 H (21-72) U/L Alkaline Phosphatase 1334 H (38-126) U/L Total Protein 6.0 L (6.3-8.2) g/dL Albumin 3.0 L (3.5-5.0) g/dL Urine Protein (Negative) Ur Leukocyte Esterase (Negative) Urine WBC (0-5) /hpf Urine WBC Clumps (None) /hpf Amorphous Sediment (None) /hpf Urine Bacteria (None) /hpf Urine Mucus (None) /hpf 09/21/17 09/21/17 09/21/17 Range/Units 05:00 06:25 09:28 WBC (3.8-10.6) k/uL RBC (4.30-5.90) m/uL Hgb (13.0-17.5) gm/dL Hct (39.0-53.0) % Neutrophils # (1.3-7.7) k/uL Lymphocytes # (1.0-4.8) k/uL INR 1.2 H (<1.2) Sodium (137-145) mmol/L Chloride (98-107) mmol/L Creatinine (0.66-1.25) mg/dL Glucose (74-99) mg/dL POC Glucose (mg/dL) (75-99) mg/dL Plasma Lactic Acid Gopi 2.8 H* (0.7-2.0) mmol/L Magnesium (1.6-2.3) mg/dL Total Bilirubin (0.2-1.3) mg/dL AST (17-59) U/L ALT (21-72) U/L Alkaline Phosphatase (38-126) U/L Total Protein (6.3-8.2) g/dL Albumin (3.5-5.0) g/dL Urine Protein Trace H (Negative) Ur Leukocyte Esterase Large H (Negative) Urine WBC >182 H (0-5) /hpf Urine WBC Clumps Rare H (None) /hpf Amorphous Sediment Occasional H (None) /hpf Urine Bacteria Many H (None) /hpf Urine Mucus Rare H (None) /hpf 09/21/17 Range/Units 11:12 WBC (3.8-10.6) k/uL RBC (4.30-5.90) m/uL Hgb (13.0-17.5) gm/dL Hct (39.0-53.0) % Neutrophils # (1.3-7.7) k/uL Lymphocytes # (1.0-4.8) k/uL INR (<1.2) Sodium (137-145) mmol/L Chloride (98-107) mmol/L Creatinine (0.66-1.25) mg/dL Glucose (74-99) mg/dL POC Glucose (mg/dL) 189 H (75-99) mg/dL Plasma Lactic Acid Gopi (0.7-2.0) mmol/L Magnesium (1.6-2.3) mg/dL Total Bilirubin (0.2-1.3) mg/dL AST (17-59) U/L ALT (21-72) U/L Alkaline Phosphatase (38-126) U/L Total Protein (6.3-8.2) g/dL Albumin (3.5-5.0) g/dL Urine Protein (Negative) Ur Leukocyte Esterase (Negative) Urine WBC (0-5) /hpf Urine WBC Clumps (None) /hpf Amorphous Sediment (None) /hpf Urine Bacteria (None) /hpf Urine Mucus (None) /hpf Microbiology - Last 24 Hours (Table) 09/21/17 06:25 Urine Culture - Preliminary Urine,Voided Comments: Pelvis x-ray report reviewed Chest x-ray: report reviewed CT Scan - head: report reviewed Assessment and Plan (1) Hx of colon cancer, stage IV Narrative/Plan: The patient has known stage IV colon cancer, were diagnostic circumstances as described above. He had extensive liver metastases at diagnosis. As noted standard chemotherapy with FOLFOX, along with Avastin was recommended. However the patient decided against chemotherapy and has been on alternative treatments. He is now presenting with slowly progressive weakness and related symptoms. Appetite is also diminished. Most likely the patient was somewhat dehydrated leading to his presentation. It was discussed with him that these symptoms are highly suspicious for progression. At this time the patient is not sure if he wants chemotherapy or not. After discussion he agreed for restaging studies with CEA and CT scans. Based on those results, if he is interested in considering treatment, he will follow-up as an outpatient. Current Visit: Yes Status: Acute Code(s): Z85.038 - PERSONAL HISTORY OF MALIGNANT NEOPLASM OF LARGE INTESTINE SNOMED Code(s): 736230398 Plan: Defer to the admitting service for management of his other medical issues
[2017-09-21] MEDS ORDERED: SODIUM CHLORIDE 0.9% 500 ML IV ONE (20:17)
[2017-09-21] MEDS: IOHEXOL 350 MG/ML 25 ML BOTTLE (ORAL USE) PO PRN ×2 (20:34→21:32)
[2017-09-21 20:39] LABS: Glucose,Whole Blood 172 mg/dL (75-99)
[2017-09-21] MEDS: HEPARIN SODIUM,PORCINE 5,000 UNIT/ML 1 ML VIAL SQ SCH (21:32)
--- NOTE | 2017-09-21 23:10 | CT ---
EXAMINATION TYPE: CT ChestAbdPelvis w con DATE OF EXAM: 09/21/2017 COMPARISON: CT abdomen and pelvis April 17, 2017 and PET/CT May 19, 2017 HISTORY: Metastatic colon cancer CT DLP: 572.7 mGycm. Automated Exposure Control for Dose Reduction was Utilized. CONTRAST: CT scan of the thorax, abdomen and pelvis is performed with IV Contrast, patient injected with 100ml mL of Omnipaque 300. FINDINGS: LUNGS: There is new small left and tiny right-sided pleural effusions. There is associated compressiv e atelectasis. This additional wedge-shaped atelectasis and/or consolidation in the right lower lobe. There is no pneumothorax seen bilaterally. There is no concerning new parenchymal nodule or mass kaylynn ntified. There is persistent 8 x 6 mm suspicious hypermetabolic subpleural nodule in the lingula on a xial image 35 correlates with PET/CT axial image 97 felt slightly larger in size. MEDIASTINUM: There are no greater than 1 cm hilar or mediastinal lymph nodes. No cardiomegaly or pe ricardial effusion is seen. Coronary artery calcification is redemonstrated which is noted marker fo r coronary artery disease. OTHER: Patient has very little intra-abdominal fat making evaluation suboptimal. LIVER/GB: Large heterogeneous hypodense lesions scattered to liver are redemonstrated. Accurate Measu rements are difficult due to confluent appearance and large size. No obvious changes identified. Some fluid surrounds gallbladder on current study but also surrounds anterior superior aspect of liver. PANCREAS: Persistent hypodense prominence of pancreatic tail is seen axial image 37. SPLEEN: New trace ascites left lateral margin of the spleen. ADRENALS: No significant abnormality is seen. KIDNEYS: There is symmetric cortical medullary uptake and excretion of both kidneys with prominent ex trarenal pelvises redemonstrated. León catheter is seen within decompressed bladder which has modera te concentric abnormal wall thickening on current study new from Prior CT. BOWEL: Oral contrast does not reach colonic level. There is no suspicious small or large bowel dilata tion. Irregular soft tissue mass in the posterior rectum which correlates with known neoplasm axial i mage 118 is redemonstrated. GENITAL ORGANS: No gross abnormality seen. LYMPH NODES: No greater than 1cm abdominal or pelvic lymph nodes are appreciated. OSSEOUS STRUCTURES: Osseous structures are demineralized. S-shaped scoliosis is redemonstrated. There is moderate joint space loss both hips. There is facet arthropathy mid to lower lumbar spine. OTHER: There is moderate atherosclerotic change seen in the aorta and iliac branch vessels. There is moderate diffuse soft tissue anasarca., Clinical correlation to exclude acute cystitis is advised. IMPRESSION: 1. Known rectal mass or neoplasm with metastatic liver disease redemonstrated without stable. Suspect ed metastatic lingular nodule slightly larger. No new obvious masses or adenopathy seen. Some limitat ion due to increasing weight loss and new diffuse soft tissue anasarca which blurs the fat planes. 2. New moderate concentric wall thickening in the bladder predominantly emptied with Le[place] catheter, clinical correlation to exclude acute cystitis is advised.
[2017-09-22 06:41] LABS: Basophils % (A) 0 %; Eosinophils % (A) 0 %; HCT 33.7 % (39.0-53.0); HGB 10.4 gm/dL (13.0-17.5); Lymphocytes # (A) 0.5 k/uL (1.0-4.8); Lymphocytes % (A) 5 %; MCH 29.7 pg (25.0-35.0); MCHC 30.8 g/dL (31.0-37.0); MCV 96.2 fL (80.0-100.0); Mean Platelet Volume 8.1; Monocytes # (A) 0.5 k/uL (0-1.0); Monocytes % (A) 4 %; Neutrophils # (A) 10.4 k/uL (1.3-7.7); Neutrophils % (A) 90 %; Platelet Count 304 k/uL (150-450); RBC 3.51 m/uL (4.30-5.90); RDW 14.3 % (11.5-15.5); WBC 11.5 k/uL (3.8-10.6)
[2017-09-22 06:58] LABS: Glucose,Whole Blood 132 mg/dL (75-99)
[2017-09-22 07:02] LABS: ALT 112 U/L (21-72); AST 167 U/L (17-59); Albumin 2.3 g/dL (3.5-5.0); Alkaline Phosphatase 1193 U/L (38-126); Anion Gap 9 mmol/L; Blood Urea Nitrogen 12 mg/dL (9-20); Carbon Dioxide 25 mmol/L (22-30); Chloride 97 mmol/L (98-107); Glucose 154 mg/dL (74-99); Sodium 131 mmol/L (137-145); Total Bilirubin 1.9 mg/dL (0.2-1.3); Total Protein 4.8 g/dL (6.3-8.2)
[2017-09-22] MEDS: FERROUS SULFATE 325 MG TAB PO SCH (08:34)
[2017-09-22] MEDS: HEPARIN SODIUM,PORCINE 5,000 UNIT/ML 1 ML VIAL SQ SCH (08:34)
[2017-09-22] MEDS ORDERED: cefTRIAXone IN SWFI 1,000 MG/10 ML SYRINGE IVP SCH (09:00)
[2017-09-22 11:34] LABS: Glucose,Whole Blood 211 mg/dL (75-99)
[2017-09-22] MEDS: SODIUM CHLORIDE 0.9% 1,000 ML IV SCH ×4 (11:48→15:13)
--- NOTE | 2017-09-22 13:32 | XR ---
Exam: FILM CXR Single portable AP view chest INDICATION: Pulmonary edema COMPARISON: None FINDINGS: Low lung lungs with somewhat lordotic positioning. Heart size within normal limits given low lung volumes and lordotic positioning. No venous congestion. Mild tortuosity of the descending aorta. There is mild atherosclerotic calcification aortic knob. Likely mild subsegmental atelectasis in the medial lung bases due to low lung volumes. Remaining lung craig are clear. No pleural effusions. Bony elements are within normal limits for age. No acute osseous abnormality. IMPRESSION: Low lung volumes. Heart size within normal limits without evidence for congestive heart failure. Mild subsegmental atelectasis medial lung bases due to low lung volumes otherwise lungs are clear. No effusion.
--- NOTE | 2017-09-22 13:58 | P.PN ---
Subjective Patient was admitted secondary to generalized weakness found to have severe dehydration patient had multiple episodes of diarrhea patient appears to have highly elevated lactic acid lactic acid of around 6.4 we'll bolus him with 2 more liters of fluid rule out pulmonary edema with a chest x-ray. Had extensive discussion with the patient and his regarding his overall goals of care patient has advanced rectal cancer metastatic disease patient declined to have chemotherapy in the past I discussed with him regarding the options of continuing treatment versus home with hospice patient cannot make the discharge discussed with oncologist as well who will come later today and discuss his options. Patient appears to be functional at home until this episode ration is highly elevated carcinoembryonic antigen and repeat CAT scan of the abdomen had abnormal urine as less thickening of the urinary bladder and patient is already on treatment for cystitis patient's urine cultures are positive for gram-negative bacilli patient is on Rocephin at this time. Constitutional: As mentioned in HPI Cardio vascular: denied any chest pain, palpitations Gastrointestinal denied any nausea vomiting Pulmonary: Denied any shortness of breath cough Neurologic denied any new focal deficits Objective - Vital Signs Vital signs: Vital Signs Temp 98.9 F 09/22/17 12:18 Pulse 100 09/22/17 12:18 Resp 16 09/22/17 12:18 BP 132/84 09/22/17 12:18 Pulse Ox 98 09/22/17 12:18 Intake & Output 09/21/17 09/22/17 09/22/17 18:59 06:59 18:59 Intake Total 840 500 120 Output Total 1999 5160 702 Balance -1160 -3620 -582 Weight 58.967 kg Intake: Intake, IV Titration 600 500 Amount Sodium Chloride 0.9% 1, 600 000 ml @ 125 mls/hr IV . Q8H [facility] Rx#:[id number] Sodium Chloride 0.9% 500 500 ml @ 999 mls/hr IV .Q31M [facility] Rx#:[id number] Oral 240 120 Output: Chest Tube Drainage 20 Chest Tube Left Lateral 20 Chest Urine 1999 4100 700 Uretheral (Le[place]) 1999 1300 Stool 2 Other: Voiding Method Incontinent Indwelling Catheter Indwelling Catheter # Voids 1 600 # Bowel Movements 1 2 3 - Exam PHYSICAL EXAMINATION: GENERAL: The patient is alert and oriented x3, not in any acute distress. Well developed, well nourished. HEENT: Pupils are round and equally reacting to light. EOMI. No scleral icterus. No conjunctival pallor. Normocephalic, atraumatic. No pharyngeal erythema. No thyromegaly. CARDIOVASCULAR: S1 and S2 present. No murmurs, rubs, or gallops. PULMONARY: Chest is clear to auscultation, no wheezing, bibasilar crackles ABDOMEN: Soft, nontender, nondistended, normoactive bowel sounds. No palpable organomegaly. MUSCULOSKELETAL: No joint swelling or deformity. EXTREMITIES: No cyanosis, clubbing, or pedal edema. NEUROLOGICAL: Gross neurological examination did not reveal any focal deficits. SKIN: No rashes. - Labs CBC & Chem 7: 09/22/17 06:19 09/22/17 06:19 Labs: Abnormal Lab Results - Last 24 Hours (Table) 09/21/17 09/21/17 09/21/17 Range/Units 16:39 18:52 20:28 WBC (3.8-10.6) k/uL RBC (4.30-5.90) m/uL Hgb (13.0-17.5) gm/dL Hct (39.0-53.0) % MCHC (31.0-37.0) g/dL Neutrophils # (1.3-7.7) k/uL Lymphocytes # (1.0-4.8) k/uL Sodium (137-145) mmol/L Chloride (98-107) mmol/L Creatinine (0.66-1.25) mg/dL Glucose (74-99) mg/dL POC Glucose (mg/dL) 170 H 172 H (75-99) mg/dL Plasma Lactic Acid Gopi 4.9 H* (0.7-2.0) mmol/L Calcium (8.4-10.2) mg/dL Total Bilirubin (0.2-1.3) mg/dL AST (17-59) U/L ALT (21-72) U/L Alkaline Phosphatase (38-126) U/L Total Protein (6.3-8.2) g/dL Albumin (3.5-5.0) g/dL Carcinoembryonic Ag (0.0-4.9) ng/mL 09/21/17 09/22/17 09/22/17 Range/Units 22:53 06:19 06:19 WBC 11.5 H (3.8-10.6) k/uL RBC 3.51 L (4.30-5.90) m/uL Hgb 10.4 L (13.0-17.5) gm/dL Hct 33.7 L (39.0-53.0) % MCHC 30.8 L (31.0-37.0) g/dL Neutrophils # 10.4 H (1.3-7.7) k/uL Lymphocytes # 0.5 L (1.0-4.8) k/uL Sodium (137-145) mmol/L Chloride (98-107) mmol/L Creatinine (0.66-1.25) mg/dL Glucose (74-99) mg/dL POC Glucose (mg/dL) (75-99) mg/dL Plasma Lactic Acid Gopi 5.2 H* (0.7-2.0) mmol/L Calcium (8.4-10.2) mg/dL Total Bilirubin (0.2-1.3) mg/dL AST (17-59) U/L ALT (21-72) U/L Alkaline Phosphatase (38-126) U/L Total Protein (6.3-8.2) g/dL Albumin (3.5-5.0) g/dL Carcinoembryonic Ag 4982.8 H (0.0-4.9) ng/mL 09/22/17 09/22/17 09/22/17 Range/Units 06:19 06:19 06:53 WBC (3.8-10.6) k/uL RBC (4.30-5.90) m/uL Hgb (13.0-17.5) gm/dL Hct (39.0-53.0) % MCHC (31.0-37.0) g/dL Neutrophils # (1.3-7.7) k/uL Lymphocytes # (1.0-4.8) k/uL Sodium 131 L (137-145) mmol/L Chloride 97 L (98-107) mmol/L Creatinine 0.50 L (0.66-1.25) mg/dL Glucose 154 H (74-99) mg/dL POC Glucose (mg/dL) 132 H (75-99) mg/dL Plasma Lactic Acid Gopi 4.6 H* (0.7-2.0) mmol/L Calcium 8.0 L (8.4-10.2) mg/dL Total Bilirubin 1.9 H (0.2-1.3) mg/dL AST 167 H (17-59) U/L ALT 112 H (21-72) U/L Alkaline Phosphatase 1193 H (38-126) U/L Total Protein 4.8 L (6.3-8.2) g/dL Albumin 2.3 L (3.5-5.0) g/dL Carcinoembryonic Ag (0.0-4.9) ng/mL 09/22/17 09/22/17 Range/Units 10:39 11:30 WBC (3.8-10.6) k/uL RBC (4.30-5.90) m/uL Hgb (13.0-17.5) gm/dL Hct (39.0-53.0) % MCHC (31.0-37.0) g/dL Neutrophils # (1.3-7.7) k/uL Lymphocytes # (1.0-4.8) k/uL Sodium (137-145) mmol/L Chloride (98-107) mmol/L Creatinine (0.66-1.25) mg/dL Glucose (74-99) mg/dL POC Glucose (mg/dL) 211 H (75-99) mg/dL Plasma Lactic Acid Gopi 6.3 H* (0.7-2.0) mmol/L Calcium (8.4-10.2) mg/dL Total Bilirubin (0.2-1.3) mg/dL AST (17-59) U/L ALT (21-72) U/L Alkaline Phosphatase (38-126) U/L Total Protein (6.3-8.2) g/dL Albumin (3.5-5.0) g/dL Carcinoembryonic Ag (0.0-4.9) ng/mL Microbiology - Last 24 Hours (Table) 09/21/17 06:25 Urine Culture - Preliminary Urine,Voided Gram Neg Bacilli Assessment and Plan Plan: -Severe lactic is doses: Secondary to dehydration, there may be a competent of urinary tract infection and sepsis contributed to that patient will be given a couple liter boluses of IV fluid discussion regarding overall goals of care as mentioned above. -Possible urinary tract infection: Continue with Rocephin. -Diarrhea: We will rule out C. diff continue with IV fluids as mentioned above. -Metastatic colon cancer -Bilateral atelectasis
[2017-09-22 15:37] VITALS: BP 142/82; PULSE 102; RESP 22; TEMP 98
--- NOTE | 2017-09-22 15:37 | P.DS ---
Providers Date of admission: 09/21/17 06:46 Attending physician: Earl Rodgers Consults: 09/21/17 07:07 Consult Physician Stat Consulting Provider: Max Vieyra Consult Reason/Comments: Stage IV colon Do you want consulting provider notified?: Yes, Notify in am 09/21/17 12:34 Consult Physician Routine Consulting Provider: Reinaldo Weldon Consult Reason/Comments: PTSD/Cancer diagnosis Do you want consulting provider notified?: Yes Primary care physician: Earl Rodgers Hospital Course: Patient wanted to be discharged today on hospice patient is being discharged home with home hospice Patient Condition at Discharge: Stable Plan - Discharge Summary Discharge Rx Participant: Yes New Discharge Prescriptions: No Action Saw [place] 160 mg PO DAILY Bladder Control 1 tab PO DAILY A-C Carbamide 1 tab PO HS Vitamin B Complex 1 cap PO DAILY L.acidoph,Paracasei, B.lactis [Probiotic] 1 cap PO DAILY Ferrous Sulfate [Feosol] 325 mg PO DAILY Blood Glucose Success 1 tab PO TID Activated Charcoal 1 tab PO DAILY Discharge Medication List A-C Carbamide 1 tab PO HS 09/21/17 [History] Activated Charcoal 1 tab PO DAILY 09/21/17 [History] Bladder Control 1 tab PO DAILY 09/21/17 [History] Blood Glucose Success 1 tab PO TID 09/21/17 [History] Ferrous Sulfate [Feosol] 325 mg PO DAILY 09/21/17 [History] L.acidoph,Paracasei, B.lactis [Probiotic] 1 cap PO DAILY 09/21/17 [History] Saw [place] 160 mg PO DAILY 09/21/17 [History] Vitamin B Complex 1 cap PO DAILY 09/21/17 [History] Follow up Appointment(s)/Referral(s): Earl Rodgers DO [Primary Care Provider] - 1-2 days Discharge Disposition: HOME WITH HOSPICE
--- NOTE | 2017-09-27 16:47 | CDI ---
Last Revision, July 2017 Documentation Clarification Form Date: 09/27/2017 4:29:00 PM From: Theresa Goncalves Phone: If you have a question about this query, please contact Soledad Howe, Marking Room Supervisor, [facility] at [phone] between 8am and 5pm. Admit Date: 09/21/2017 6:46:00 AM Patient Name: Hieu Ortega Visit Number: [id number] Discharge Date: 09/22/17 ATTENTION: The Clinical Documentation Specialists (CDI) and [facility] Coding Staff appreciate your assistance in clarifying documentation. Please respond to the clarification below the line at the bottom and electronically sign. The CDI & [facility] Coding staff will review the response and follow-up if needed. Please note: Queries are made part of the Legal Health Record. If you have any questions, please contact the author of this message via ITS. Dr. Kevin Sanchez Discharge summary does not include diagnoses. 09/22 progress note documents "severe lactic is doses: secondary to deydration, there may be a competent of urinary tract infection and sepsis contributed to that patient will be given a couple liter boluses of IV fluids." History and physical document Stage IV colon cancer with metastasis to liver (declining treatment). Acute dehydration and near-syncope with fall. Presenting symptoms: Feeling weak, inability to walk, causing him to fall. Patient history/risk factors: Diagnoses with cancer April 2017 Lab findings: Lactic acid-3.1, WBC-13.0, neutrophils-11.9 Vital Signs: T- 97.7 to 100.1 on day of admission, P-98, BP-127/79, 119/77 & 126/68 on day of admission Treatment: CT brain, CXR, XR pevis, CT chest, IV fluids, IV Dilaudid, IVRocephin Consults: Onocolgy The patients principal diagnosis has not been clearly identified and requires clarification. In your professional opinion, can you please clarify which diagnosis, after study, accounted for the patients presenting symptoms and was the reason chiefly responsible for the admission? Please continue to document in your progress notes and discharge summary in order to capture severity of illness and risk of mortality. Include clinical findings that support your diagnosis. Patient was made hospice so these conditions are not dictated and was treated for these conditions during her hospitalization. MTDD
== END 2017-09-22 17:39 | disposition home or self-care (01) | DRG 872 ==
LOC: EC 04:15 → 3SUR 06:46
PROVIDERS: ADMIT Family Medicine; ATTEND Family Medicine
DX: A41.9 Sepsis, unspecified organism (principal); E87.2 Acidosis; C78.7 Secondary malignant neoplasm of liver and intrahepatic bile duct; C18.9 Malignant neoplasm of colon, unspecified; D63.8 Anemia in other chronic diseases classified elsewhere; E11.9 Type 2 diabetes mellitus without complications; N30.90 Cystitis, unspecified without hematuria; K62.5 Hemorrhage of anus and rectum; J98.11 Atelectasis; E86.0 Dehydration; S00.01XA Abrasion of scalp, initial encounter; R26.2 Difficulty in walking, not elsewhere classified; F31.9 Bipolar disorder, unspecified; F43.10 Post-traumatic stress disorder, unspecified; F41.9 Anxiety disorder, unspecified; R19.7 Diarrhea, unspecified; Z79.899 Other long term (current) drug therapy; Z87.891 Personal history of nicotine dependence; Z91.018 Allergy to other foods; W19.XXXA Unspecified fall, initial encounter
CPT/HCPCS: 36415; 70450; 71045; 71046; 71260; 72125; 72170; 74177; 80053; 81001; 82378; 82550; 82553; 83036; 83605; 83735; 84484; 85025; 85610; 85730; 87040; 87077; 87086; 87186; 93005; 96360; 99285